=== PATIENT | male | born 1930 | race Caucasian/White ===

== ENCOUNTER 2017-03-09 09:12 | Outpatient (CLI) | payer OTHER ==
--- NOTE | 2017-03-09 10:43 | DIAGNOSTIC IMAGING REPORT ---
PROCEDURE: CT HEAD WITHOUT CONTRAST INDICATION: INTERMITTENT ATAXIA TECHNIQUE: Axial CT images were acquired through the head. Coronal and sagittal reformations were created. COMPARISON: Head CT 11/19/2009 FINDINGS: Mild cerebral cortical atrophy. Mild hypodensity in the periventricular and subcortical white matter. No change in the encephalomalacia in the left cerebellar hemisphere. No change in the right temporal arachnoid cyst. No intracranial hemorrhage or extraaxial fluid collections. Ventricles are normal in size, shape and position. There is no mass, mass effect or midline shift. The díaz-white matter differentiation is normal. There is no edema. The calvarium is intact. The paranasal sinuses and mastoid air cells are normally aerated. The extracranial soft tissues and orbits are normal. IMPRESSION: 1. No CT evidence of acute intracranial process. 2. Age related involutional and white matter changes. All CT scans at this facility use dose modulation, iterative reconstruction, and/or weight-based dosing when appropriate to reduce radiation dose to as low as reasonably achievable.
--- NOTE | 2017-03-09 11:08 | DIAGNOSTIC IMAGING REPORT ---
PROCEDURE: CT ABDOMEN/PELVIS W/O CONTRAST INDICATION: LOWER ABD PAIN TECHNIQUE: Axial CT images were obtained through the abdomen and pelvis without IV contrast. Coronal and sagittal reformations were created. COMPARISON: CT thorax 12/10/2015 FINDINGS: Stable 4 mm ground-glass right middle lobe lung nodule. Otherwise minor right base atelectasis. 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 Mild coronary calcification. Normal sized heart. No hiatal hernia. The gallbladder surgically absent. There are scattered punctate calcifications throughout the pancreas. The stomach is distended with ingested material. There is a large amount of retained solid stool throughout a redundant colon. No hiatal hernia. The unenhanced appearance of the liver, adrenal glands, kidneys, and spleen is normal. The abdominal aorta is tortuous in its course and normal caliber with mild calcific atherosclerosis. There are no suspicious calcifications, retroperitoneal adenopathy or masses. The upper small bowel loops, and mesentery appears normal. Intact anterior abdominal wall. No free fluid, or inflammation. The prostate gland is moderately enlarged. Mild diffuse thickening of the urinary bladder wall may be due to incomplete distention. No perivesicular inflammation. The unenhanced appearance of the seminal vesicles, urinary bladder, pelvic vessels, and pelvic bowel loops is normal. Normal appendix. No suspicious calcifications, free fluid, or mass. Severe degenerative disc endplate changes throughout the lumbar spine, most extensive at L3-4 and L5-S1. Left hemilaminectomy defect at L5 is present. There are enthesopathic changes and mild degenerative changes in each femoral acetabular joint. IMPRESSION: 1. Fairly large amount of stool retained throughout the colon. 2. Mild thickening of the urinary bladder wall can be seen in cystitis or incomplete urinary bladder distention. Correlate with UA. 3. Moderately enlarged prostate gland may contribute to the urinary bladder outlet obstruction. 4. Surgical changes of left L5 hemilaminectomy and cholecystectomy. All CT scans at this facility use dose modulation, iterative reconstruction, and/or weight-based dosing when appropriate to reduce radiation dose to as low as reasonably achievable.
== END 2017-03-09 23:00 ==
LOC: CT SRH 09:12
DX: R10.30 Lower abdominal pain, unspecified (principal); R27.0 Ataxia, unspecified; N40.0 Benign prostatic hyperplasia without lower urinary tract symptoms; Z90.49 Acquired absence of other specified parts of digestive tract

== ENCOUNTER 2017-04-17 10:00 | Outpatient (CLI) | payer OTHER ==
--- NOTE | 2017-04-17 13:29 | DIAGNOSTIC IMAGING REPORT ---
PROCEDURE: XR BARIUM ENEMA W/AIR CONTRAST INDICATION: CHANGE IN BOWEL HABITS TECHNIQUE: Single contrast study. Fluoroscopy time, 7.4 minutes; 3926.47 mGy. COMPARISON: Comparison is made to CT abdomen and pelvis on 03/09/2017. FINDINGS: Preliminary abdominal radiograph demonstrates normal bowel pattern. There is a mild levoscoliosis and marked degenerative change of the lumbar spine. Multiple calcifications overlying the pelvis compatible with phleboliths. There is marked diverticulosis of the descending and sigmoid colons. There is a tortuous and redundant right colon with interposition of the hepatic flexure (Chiladiti's-- normal variant). No constricting or polypoid lesions are identified. There is reflux into normal terminal ileum. IMPRESSION: 1. Marked diverticulosis of the descending and sigmoid colon. 2. Redundant and tortuous right colon. 3. Otherwise negative barium enema. No constricting or polypoid lesions are identified. 4. Findings discussed with the patient.
== END 2017-04-17 23:00 | disposition home or self-care (01) ==
LOC: XR SRH 10:00
DX: K57.30 Diverticulosis of large intestine without perforation or abscess without bleeding (principal); Q43.8 Other specified congenital malformations of intestine